=== PATIENT | male | born 1975 | race Caucasian/White ===

== ENCOUNTER 2024-11-10 11:41 | Emergency (ER) | payer MEDICAID, SELFPAY ==
[2024-11-10 11:50] VITALS: BP 155/72; PULSE 51; RESP 20; TEMP 36.6; O2SAT 100; BMI 28.1
--- NOTE | 2024-11-10 11:57 | XR_ITS ---
Examination: CT abdomen and pelvis without contrast. Coronal 3-D reconstructions. Sagittal 2-D reconstructions. Date and time of exam:November 10, 2024 1210 hours INDICATIONS: Onset abdominal pain and nausea today CTDI: vol (mGy): 7.75 DLP: (mGycm): 504 Technique: Axial images of the abdomen have been obtained, 3 mm slice thickness Intravenous contrast material has not been administered. Low dose protocols were performed. One or more of the following dose reduction techniques were used; automated exposure control, adjustment of the mA and/or KV according to patient size, use of iterative reconstruction technique. Findings: No focal liver or splenic lesions No gallstones No pancreatic or adrenal mass Mild left hydronephrosis, 5 mm proximal left ureteral calculus Normal appendix No bladder mass or bladder calculi IMPRESSION: Mild left hydronephrosis secondary to 5 mm proximal left ureteral calculus
--- NOTE | 2024-11-10 11:58 | PD.EDABDPN ---
ED Abdominal Pain RME/HPI General Chief Complaint: Abdominal Pain Stated complaint: LEFT MID ABD. PAIN RAD. TO GROIN X 1HR Time seen by provider: 11/10/24 11:53 Arrival date/time: 11/10/24 11:41 RME / HPI RME / HPI narrative: 49-year-old male patient came in for evaluation regarding left mid abdominal pain. Onset of symptoms about 1 hour prior to ER visit sudden onset of mid abdominal pain radiating to the groin, described as sharp pain, severity 10 out of 10 associated with nausea. Patient denies any hematuria. Denies any dysuria denies any fever denies any other complaints patient denies any trauma or fall. Denies any similar episode in the past. Patient is not taking anything for pain. Related Data Previous Rx's ?Medication ?Instructions ?Recorded ketorolac 10 mg tablet 10 mg PO Q8H PRN pain 5 days #20 11/10/24 tabs tamsulosin 0.4 mg capsule (Flomax) 0.4 mg PO QDAY #20 caps 11/10/24 Allergies Allergy/AdvReac Type Severity Reaction Status Date / Time erythromycin base Allergy Verified 11/10/24 11:45 Review of Systems Review of Systems Narrative Review of Systems: Review of system reviewed and within normal limits except mentioned in HPI ED Exam Narrative Physical exam: VITAL SIGNS: Reviewed. GENERAL APPEARANCE: Alert and interactive, follows commands, no acute distress, HEAD AND FACE: Non-traumatic. ENT: PERRL, pink conjunctivitis, eyelid no trauma, Mucous membrane moist. NECK: Supple, nontender, no nuchal rigidity. CHEST: No tenderness, no crepitus, no paradoxical movement, no retractions. LUNGS: Clear, well ventilated, symmetric, no rales, no wheezing, no ronchi, no stridor, good breath sounds bilaterally. HEART: Regular rate, regular rhythm, no murmur, no gallops. ABDOMEN: Soft, positive bowel sounds, nondistended, no guarding, left mid abdominal tenderness, no rebound, no masses, RECTAL: Deferred. GENITAL: Deferred. NEUROLOGICAL: Gross motor function intact sensory function intact, Appropriate for age. MUSCULOSKELETAL: low back nontender, full range of motion. EXTREMITIES: Nontender, full range of motion. SKIN: Color pink, dry, no rash, no lacerations, no abrasions, no contusions. LYMPHATICS: Deferred. Course Quality Measures none Orders Category Date Time Status CT abdomen pelvis wo con Stat Exams 11/10/24 11:57 Completed CBC [CBC] Stat Lab 11/10/24 13:09 Completed CMP [Comprehensive Metabolic Panel] Stat Lab 11/10/24 13:09 Completed UA, C/S IF [Urinalysis, C/S if Indicated] Stat Lab 11/10/24 14:18 Completed Ketorolac Inj [Toradol Inj] Med 11/10/24 11:57 Discontinued 30 mg IM X1 ONE Ondansetron Odt [Zofran Odt] Med 11/10/24 11:57 Discontinued 4 mg PO X1 ONE Ringers Lactated 1000 ml [Lactated Ringers] 1,000 ml Med 11/10/24 12:31 Discontinued IV 999 mls/hr Ringers Lactated 1000 ml [Lactated Ringers] 1,000 ml Med 11/10/24 12:31 Discontinued IV 999 mls/hr Tamsulosin HCl [Flomax] Med 11/10/24 12:31 Discontinued 0.4 mg PO X1 ONE Vital Signs Vital signs: Vital Signs Temperature 97.9 F 11/10/24 11:50 Pulse Rate 51 L 11/10/24 11:50 Respiratory Rate 20 11/10/24 11:50 Blood Pressure 155/72 H 11/10/24 11:50 Pulse Oximetry (%) 100 11/10/24 11:50 Oxygen Delivery Method Room Air 11/10/24 11:50 Abdominal Pain MDM MDM Narrative MDM Narrative:: 49-year-old male patient came in for evaluation regarding left mid abdominal pain. Onset of symptoms about 1 hour prior to ER visit sudden onset of mid abdominal pain radiating to the groin, described as sharp pain, severity 10 out of 10 associated with nausea. Patient denies any hematuria. Denies any dysuria denies any fever denies any other complaints patient denies any trauma or fall. Denies any similar episode in the past. Patient is not taking anything for pain. Patient's workup all came back unremarkable. Except for hematuria in the urine. No sign of UTI. CT scan of the abdomen pelvis showed 5 mm left ureteral stone. Prior to discharge patient is not having any pain patient received Flomax and Toradol. Patient refused IV fluids. Patient is stable for discharge home. Advised him to follow-up closely with urologist Patient appears nontoxic and hemodynamically stable .Decision to discharge the patient. The patient/family was given an opportunity to ask questions and understood their discharge instructions. Discharge instructions specifically included follow up provider and time frame, current and/or new medications and possible side effects, indications for sooner follow up or return to the emergency department, and the expected course of current diagnosis. Patient reports feeling better as well and giving evidence of significant clinical improvement, I believe patient is now a candidate for discharge. Patient data External records reviewed:: None Clinical information provided by:: patient and family Social determinants that could affect healthcare access:: none Patient has the following chronic illnesses:: None How is presenting disease/condition affected by chronic disease/condition?: exacerbated by Evaluation data The following diagnostics were reviewed and interpreted by me:: lab results and radiology exam(s) Lab and/or radiology exams considered but not ordered:: None Interpretation Summary: See results MDM Medications / Prescriptions Medications or Prescriptions considered but not ordered:: None Medication administrations:: Medication Administration History Discontinued Medications Lactated Ringer's (Lactated Ringers) 1,000 mls @ 999 mls/hr IV .Q1H1M ONE Stop: 11/10/24 13:31 Last Admin: 11/10/24 16:07 Dose: Not Given Documented By: DO Non-Admin Reason: Cancelled by Provider Lactated Ringer's (Lactated Ringers) 1,000 mls @ 999 mls/hr IV .Q1H1M ONE Stop: 11/10/24 13:31 Last Admin: 11/10/24 16:07 Dose: Not Given Documented By: DO Non-Admin Reason: Cancelled by Provider Ketorolac Tromethamine (Ketorolac Inj 30 Mg/Ml Vial) 30 mg IM X1 ONE Stop: 11/10/24 11:58 Last Admin: 11/10/24 12:05 Dose: 30 mg Documented By: Ondansetron HCl (Ondansetron Odt 4 Mg Tabrap) 4 mg PO X1 ONE; Protocol Stop: 11/10/24 11:58 Last Admin: 11/10/24 12:05 Dose: 4 mg Documented By: Tamsulosin HCl (Tamsulosin Hcl 0.4 Mg Capsule) 0.4 mg PO X1 ONE Stop: 11/10/24 12:32 Last Admin: 11/10/24 15:40 Dose: 0.4 mg Documented By: Toradol, Flomax and Zofran Consultations Consultation(s) initiated? (list below): No Diagnosis Differential diagnosis abdominal pain: abdominal pain and other (Renal colic, ureterolithiasis) Most likely diagnosis given after review of the tests above:: Renal colic, ureterolithiasis Admission Indicated Admission indicated?: not indicated Admission Request Was there a request for admission?: No Disposition Plan Disposition Plan: Discharge Discharge Attestation Discharge Attestation: The patient and all family members were given an opportunity to ask questions and understood the discharge instructions. Discharge instructions specifically effects, indications for sooner follow up or return to the emergency department, and the expected course of current diagnosis. Patient condition: Stable Discharge Plan Plan Patient Disposition: HOME (Self Care) Discharge Disposition comment: Stable Prescriptions/Referrals Prescriptions/Med Rec: New tamsulosin [Flomax] 0.4 mg capsule 0.4 mg PO QDAY Qty: 20 0RF ketorolac 10 mg tablet 10 mg PO Q8H PRN (Reason: pain) 5 Days Qty: 20 0RF Referrals: Leighton Brown MD [Primary Care Provider, Family Practice] - In 1 week Problem List Clinical Impression: Renal colic, Ureterolithiasis Patient/Caregiver Discharge Instructions Discharge Activity: activity as tolerated Education Materials: Treating Kidney Stones ... Additional Instructions: Thank you for the opportunity for serving you today. You are stable for discharged . You are advised to: Follow-up with your PCP in 1 to 2 days Return to ED for worsening of symptoms Increase oral fluids Take medication as prescribed Print Language: Moroccan Stand Alone Forms: [facility] Award Info., Patient Portal Info Letter CARLOS/MARGARITA Supervising Physician THOMAS Supervising Physician: MD Duy
[2024-11-10] MEDS: KETOROLAC INJ 30 MG/ML VIAL IM (12:05)
[2024-11-10] MEDS: ONDANSETRON ODT 4 MG TABRAP PO (12:05)
[2024-11-10 13:27] LABS: Basophils # (Auto) 0.0 Thou/mm3 (0.0-0.2); Basophils % (Auto) 0 % (0-2.5); Eosinophils # (Auto) 0.1 Thou/mm3 (0.0-0.5); Eosinophils % (Auto) 1 % (0-10); Hematocrit 43.4 % (41.0-53.0); Hemoglobin 15.3 g/dL (13.5-16.0); Immature Granulocytes Auto 0.03 Thou/mm3 (0.00-0.00); Lymphocytes # (Auto) 1.0 Thou/mm3 (1.0-4.8); Lymphocytes % (Auto) 13 % (10-50); Mean Corpuscular HGB Conc 35.3 g/dl (31.0-37.0); Mean Corpuscular Hemoglobin 32.6 pg (25.0-35.0); Mean Corpuscular Volume 93 fL (80-100); Monocytes # (Auto) 0.9 Thou/mm3 (0.0-0.8); Monocytes % (Auto) 12 % (0-12); Neutrophils # (Auto) 5.5 Thou/mm3 (1.8-7.7); Neutrophils % (Auto) 73 % (37-80); Nucleated Red Blood Cell # 0.00 Thou/mm3 (0.00-0.00); Nucleated Red Blood Cell % 0 /100 WBC (0); Platelet Count 194 Thou/mm3 (140-440); RDW Standard Deviation 44.1 fL (35.1-43.9); Red Blood Count 4.69 Miln/mm3 (4.50-5.90); White Blood Count 7.5 Thou/mm3 (3.8-10.6)
[2024-11-10 13:42] LABS: Alanine Aminotransferase 16 U/L (10-49); Albumin, Serum 4.2 gm/dL (3.5-5.0); Albumin/Globulin Ratio 1.9 (1.2-2.2); Alkaline Phosphatase 69 U/L (46-116); Anion Gap 8 (7-16); Aspartate Amino Transferase 19 U/L (0-34); BUN/Creatinine Ratio 8 Ratio (12-20); Bilirubin,Total 0.4 mg/dL (0.3-1.2); Blood Urea Nitrogen 8 mg/dL (9-23); Calcium 8.9 mg/dL (8.3-10.6); Calcium (Corrected) 8.9 mg/dL (8.5-10.1); Carbon Dioxide 27.7 mMol/L (20.0-31.0); Chloride 107 mMol/L (98-107); Creatinine (Component) 1.0 mg/dL (0.6-1.3); Estimated Creatinine Clearance 96.4 mL/min (>60); Globulin 2.2 gm/dL (2.3-3.5); Glucose 112 mg/dL (74-106); Osmolality,Calculated 284 (275-295); Potassium 3.9 mMol/L (3.4-5.1); Sodium 143 mMol/L (136-145); Total Protein 6.4 gm/dL (5.7-8.2); eGFR > 60 See Note
[2024-11-10 14:30] LABS: Collection Type, Urine Clean Catch
[2024-11-10 15:00] LABS: Bilirubin,Urine Negative (Negative); Blood,Urine 3+ (Negative); Culture Indicated,Urine Not Indicated; Glucose, Urine Negative (Negative); Ketones,Urine Negative (Negative); Leukocyte Esterase,Urine Positive (Negative); Nitrite,Urine Negative (Negative); PH,Urine 6.5 (5.0-7.0); Protein,Urine 1+ (Neg - Trace); RBC,Urine 3450 /hpf (0-3); Specific Gravity,Urine 1.023 (1.001-1.035); Squamous Epithelial Cell,Urine 1 /hpf (0-5); Urobilinogen,Urine Negative mg/dL (0.0-1.0); WBC,Urine 5 /hpf (0-5)
[2024-11-10 15:01] LABS: Clarity,Urine Hazy (Clear/Hazy); Color,Urine Lt Yellow (Lt Yel-Yel)
[2024-11-10] MEDS: TAMSULOSIN HCL 0.4 MG CAPSULE PO (15:40)
[2024-11-10 16:10] VITALS: BP 121/79; PULSE 66; RESP 16; TEMP 36.9; O2SAT 94
== END 2024-11-10 16:22 | disposition home or self-care (01) ==
PROVIDERS: Nurse Practitioner Family; Emergency Provider Emergency Medicine; PCP Family Medicine
DX: N20.1 Calculus of ureter (principal)
CPT/HCPCS: 36415; 74176; 80053; 81001; 83690; 85025; 96372; 99284; J1885; Q0162; A9270

== ENCOUNTER 2024-11-15 23:19 | Emergency (ER) | payer MEDICAID, SELFPAY ==
[2024-11-15 23:20] VITALS: BMI 28.1
[2024-11-15 23:28] VITALS: BP 142/91; PULSE 63; RESP 24; TEMP 36.9; O2SAT 97
--- NOTE | 2024-11-15 23:34 | PD.EDRME ---
Rapid Medical Screening Exam RME Arrival date/time: 11/15/24 23:19 49N with history of recent 5 mm proximal L-sided ureteral stone presents to ED with worsening pain and N/V. Patient was put on some ABX by PCP. Chief Complaint: Abdominal Pain Vital signs: Vital Signs Temperature 98.4 F 11/15/24 23:28 Pulse Rate 63 11/15/24 23:28 Respiratory Rate 24 H 11/15/24 23:28 Blood Pressure 142/91 H 11/15/24 23:28 Pulse Oximetry (%) 97 11/15/24 23:28 Oxygen Delivery Method Room Air 11/15/24 23:28
[2024-11-15] MEDS: ONDANSETRON ODT 4 MG TABRAP PO (23:38)
[2024-11-16 00:01] LABS: Basophils # (Auto) 0.1 Thou/mm3 (0.0-0.2); Basophils % (Auto) 1 % (0-2.5); Eosinophils # (Auto) 0.3 Thou/mm3 (0.0-0.5); Eosinophils % (Auto) 3 % (0-10); Hematocrit 43.7 % (41.0-53.0); Hemoglobin 15.1 g/dL (13.5-16.0); Immature Granulocytes Auto 0.03 Thou/mm3 (0.00-0.00); Lymphocytes # (Auto) 1.9 Thou/mm3 (1.0-4.8); Lymphocytes % (Auto) 21 % (10-50); Mean Corpuscular HGB Conc 34.6 g/dl (31.0-37.0); Mean Corpuscular Hemoglobin 32.0 pg (25.0-35.0); Mean Corpuscular Volume 93 fL (80-100); Monocytes # (Auto) 0.8 Thou/mm3 (0.0-0.8); Monocytes % (Auto) 8 % (0-12); Neutrophils # (Auto) 6.2 Thou/mm3 (1.8-7.7); Neutrophils % (Auto) 67 % (37-80); Nucleated Red Blood Cell # 0.00 Thou/mm3 (0.00-0.00); Nucleated Red Blood Cell % 0 /100 WBC (0); Platelet Count 228 Thou/mm3 (140-440); RDW Standard Deviation 42.5 fL (35.1-43.9); Red Blood Count 4.72 Miln/mm3 (4.50-5.90); White Blood Count 9.2 Thou/mm3 (3.8-10.6)
[2024-11-16 00:19] LABS: Alanine Aminotransferase 14 U/L (10-49); Albumin, Serum 4.6 gm/dL (3.5-5.0); Albumin/Globulin Ratio 1.9 (1.2-2.2); Alkaline Phosphatase 75 U/L (46-116); Anion Gap 6 (7-16); Aspartate Amino Transferase 15 U/L (0-34); BUN/Creatinine Ratio 8 Ratio (12-20); Bilirubin,Total 0.6 mg/dL (0.3-1.2); Blood Urea Nitrogen 10 mg/dL (9-23); Calcium 9.7 mg/dL (8.3-10.6); Calcium (Corrected) 9.7 mg/dL (8.5-10.1); Carbon Dioxide 29.7 mMol/L (20.0-31.0); Chloride 106 mMol/L (98-107); Creatinine (Component) 1.2 mg/dL (0.6-1.3); Estimated Creatinine Clearance 80.3 mL/min (>60); Globulin 2.4 gm/dL (2.3-3.5); Glucose 115 mg/dL (74-106); Osmolality,Calculated 283 (275-295); Potassium 3.6 mMol/L (3.4-5.1); Sodium 142 mMol/L (136-145); Total Protein 7.0 gm/dL (5.7-8.2); eGFR > 60 See Note
[2024-11-16 00:20] VITALS: BP 162/83; PULSE 51; RESP 16; TEMP 36.3; O2SAT 94
--- NOTE | 2024-11-16 00:24 | EDNOTE_ITS ---
ED Abdominal Pain RME/HPI General Chief Complaint: Abdominal Pain Stated complaint: LEFT SIDE ABDOMINAL PAIN Time seen by provider: 11/16/24 00:18 Arrival date/time: 11/15/24 23:19 RME / HPI RME / HPI narrative: 11/15/24 23:19 49N with history of recent 5 mm proximal L-sided ureteral stone presents to ED with worsening pain and N/V. Patient was put on some ABX by PCP. Dr. Ward?s Main ED Evaluation: 49yo male presents to the ED for a chief complaint of left lower back pain that radiates to his abdomen. Patient was recently diagnosed with a left kidney stone on 11/10/24 and has since developed worsening pain. He reports associated nausea. Patient denies any vomiting, fever, chills, or any other associated symptoms. Patient has been taking NSAIDs and Flomax at home. Related Data Previous Rx's ?Medication ?Instructions ?Recorded tamsulosin 0.4 mg capsule (Flomax) 0.4 mg PO QDAY #20 caps 11/10/24 hydrocodone 10 mg-acetaminophen 1 tab PO Q6H PRN pain #30 tabs 11/16/24 325 mg tablet ibuprofen 800 mg tablet 800 mg PO Q8H PRN pain #30 t abs 11/16/24 tamsulosin 0.4 mg capsule (Flomax) 0.4 mg PO QDAY #7 c aps 11/16/24 Allergies Allergy/AdvReac Type Severity Reaction Status Date / Time erythromycin base Allergy Verified 11/10/24 11:45 Review of Systems Review of Systems Systems Reviewed: All systems reviewed, normal except as documented ED Exam Narrative Physical exam: Generally patient is alert in no obvious distress, heart regular rate and rhythm, lungs clear to auscultation equal bilaterally, abdomen soft bowel sounds present nondistended left lateral lower abdominal tenderness without rebound, musculoskeletal exam showed the patient had mild costovertebral angle tenderness on the left. Course Quality Measures none Orders Category Date Time Status CT abdomen pelvis wo con Stat Exams 11/16/24 00:25 Taken CBC Stat Lab 11/15/24 23:51 Completed CMP [Comprehensive Metabolic Panel] Stat Lab 11/15/24 23:51 Completed Urinalysis, C/S if Indicated Stat Lab 11/15/24 00:17 Completed Ketorolac Inj [Toradol Inj] Med 11/16/24 00:24 Discontinued 60 mg IM X1 ONE Ondansetron Odt [Zofran Odt] Med 11/15/24 23:34 Discontinued 4 mg PO X1 ONE Vital Signs Vital signs: Vital Signs Temperature 98.4 F 11/15/24 23:28 Pulse Rate 63 11/15/24 23:28 Respiratory Rate 24 H 11/15/24 23:28 Blood Pressure 142/91 H 11/15/24 23:28 Pulse Oximetry (%) 97 11/15/24 23:28 Oxygen Delivery Method Room Air 11/15/24 23:28 Abdominal Pain MDM [facility] Narrative [facility] Narrative:: Scribe Attestation: 11/16/24 - I, Estrellita Brown am scribing for and in the presence of Dr. Ward. There is no fever or leukocytosis. Patient is currently on antibiotics and Flomax at this time. CT scan done of the abdomen and pelvis without contrast tonight shows very similar stone position to 5 days ago. There is mild left- sided hydronephrosis. Patient is to continue the antibiotic. I will increase the Flomax for 1 more week. Ibuprofen and [place] as prescribed. Stop the tramadol. It was stressed to the patient that he needs to follow-up with his primary care physician for urology referral. I do not have a urologist on-call in the emergency room at this time. I interpreted all labs. Patient data External records reviewed:: [facility] previous records (Per chart review, patient was seen here on 11/10/24 for renal colic.) Clinical information provided by:: patient Social determinants that could affect healthcare access:: none Patient has the following chronic illnesses:: none How is presenting disease/condition affected by chronic disease/condition?: no chronic disease Evaluation data The following diagnostics were reviewed and interpreted by me:: lab results and radiology exam(s) Lab and/or radiology exams considered but not ordered:: none Interpretation Summary: See [facility] Medications / Prescriptions Medications or Prescriptions considered but not ordered:: none Medication administrations:: Medication Administration History Discontinued Medications Ketorolac Tromethamine (Ketorolac Inj 60 Mg/2 Ml Vial) 60 mg IM X1 ONE Stop: 11/16/24 00:25 Last Admin: 11/16/24 00:33 Dose: 60 mg Documented By: MOISES Ondansetron HCl (Ondansetron Odt 4 Mg Tabrap) 4 mg PO X1 ONE; Protocol Stop: 11/15/24 23:35 Last Admin: 11/15/24 23:38 Dose: 4 mg Documented By: DT see above Consultations Consultation(s) initiated? (list below): No Diagnosis Differential diagnosis abdominal pain: other (See MDM) Most likely diagnosis given after review of the tests above:: see clinical impression below Admission Indicated Admission indicated?: not indicated Admission Request Was there a request for admission?: No Disposition Plan Disposition Plan: Discharge Discharge Attestation Discharge Attestation: The patient and all family members were given an opportunity to ask questions and understood the discharge instructions. Discharge instructions specifically effects, indications for sooner follow up or return to the emergency department, and the expected course of current diagnosis. Patient condition: Stable Discharge Plan Plan Patient Disposition: HOME (Self Care) Prescriptions/Referrals Prescriptions/Med Rec: New tamsulosin [Flomax] 0.4 mg capsule 0.4 mg PO QDAY Qty: 7 0RF ibuprofen 800 mg tablet 800 mg PO Q8H PRN (Reason: pain) Qty: 30 0RF hydrocodone-acetaminophen 10-325 mg tablet 1 tab PO Q6H MDD 4 PRN (Reason: pain) Qty: 30 0RF No Action tamsulosin [Flomax] 0.4 mg capsule 0.4 mg PO QDAY Qty: 20 0RF Referrals: No Primary/Family,Physician [Primary Care Provider] - In 1 week Problem List Clinical Impression: Renal colic Patient/Caregiver Discharge Instructions Print Language: Albanian Stand Alone Forms: [facility]lette Award Info., Patient Portal Info Letter
--- NOTE | 2024-11-16 00:25 | XR_ITS ---
Examination: CT abdomen and pelvis without contrast. Coronal 3-D reconstructions. Sagittal 2-D reconstructions. Date and time of exam: November 16, 2024, 0110 hrs. Indications: Onset left-sided flank pain and back pain today, history 5 mm proximal left ureteral calculus mild left hydronephrosis on CT study 11/10/2024 CTDI: vol (mGy): 8.12 DLP: (mGycm): 504 Technique: Axial images of the abdomen have been obtained, 3 mm slice thickness Intravenous contrast material has not been administered. Low dose protocols were performed. One or more of the following dose reduction techniques were used; automated exposure control, adjustment of the mA and/or KV according to patient size, use of iterative reconstruction technique. Findings: No focal liver or splenic lesion Contracted gallbladder No pancreatic or adrenal mass Mild left hydronephrosis, 6 mm proximal left ureteral calculus Aorta normal size Normal appendix No bowel obstruction No significant prostatomegaly No bladder mass or bladder calculi Suspicious for small right hydrocele Impression: Persistent mild left hydronephrosis secondary to 6 mm proximal left ureteral calculus
[2024-11-16 00:31] LABS: Collection Type, Urine Clean Catch
[2024-11-16] MEDS: KETOROLAC INJ 60 MG/2 ML VIAL IM (00:33)
[2024-11-16 00:38] LABS: Bilirubin,Urine Negative (Negative); Blood,Urine 2+ (Negative); Clarity,Urine Clear (Clear/Hazy); Color,Urine Yellow (Lt Yel-Yel); Culture Indicated,Urine Not Indicated; Glucose, Urine Negative (Negative); Ketones,Urine Negative (Negative); Leukocyte Esterase,Urine Negative (Negative); Nitrite,Urine Negative (Negative); PH,Urine 6.0 (5.0-7.0); Protein,Urine Trace (Neg - Trace); RBC,Urine 20 /hpf (0-3); Specific Gravity,Urine 1.022 (1.001-1.035); Squamous Epithelial Cell,Urine 1 /hpf (0-5); Urobilinogen,Urine 2.0 mg/dL (0.0-1.0); WBC,Urine 2 /hpf (0-5)
[2024-11-16 01:57] VITALS: BP 110/59; PULSE 60; RESP 17; TEMP 36.7; O2SAT 95
--- NOTE | 2024-11-16 02:34 | PRELIM_ITS ---
CT scan of the abdomen and pelvis without intravenous contrast (axial sections with sagittal and coronal reformats) November 16, 2024 0110 hours Clinical History: Left-sided kidney stone Findings: Bibasilar dependent atelectasis is present.The liver, gallbladder, pancreas, spleen and adrenals are unremarkable on this noncontrast study. There is a 6.5 mm obstructing calculus in the left proximal ureter with moderate hydroureteronephrosis.There is bilateral perinephric stranding, left worse than right. No evidence of bowel obstruction. There is submucosal fatty infiltration of the colon, which may be seen with chronic inflammation, obesity or diabetes.The appendix is within normal limits. There is no mesenteric or retroperitoneal adenopathy. The urinary bladder is unremarkable. There is no free fluid or free air. A moderate right hydrocele and a small left hydrocele are noted.The abdominal aorta demonstrates atheromatous calcification without evidence of aneurysm. The osseous structures are unremarkable. Impression: 6.5 mm obstructing calculus in the left proximal ureter with moderate hydroureteronephrosis. Submucosal fatty infiltration of the colon which may be seen with chronic inflammation, obesity or diabetes. Moderate right and small left hydrocele. Report Electronically Signed By: Delfin Marrero 11/16/2024 2:33:45 AM [EST]
--- NOTE | 2024-11-16 02:49 | PC.NURSE ---
WE HAD DOWN TIME FROM [id number].
== END 2024-11-16 02:49 | disposition home or self-care (01) ==
PROVIDERS: Physician Assistant; Emergency Provider Emergency Medicine
DX: N13.2 Hydronephrosis with renal and ureteral calculous obstruction (principal)
CPT/HCPCS: 36415; 74176; 80053; 81001; 85025; 96372; 99283; J1885; Q0162